=== PATIENT | male | born 1995 | race Caucasian/White ===

== ENCOUNTER 2019-09-07 16:40 | Inpatient (IN) | payer BC, SELFPAY ==
[2019-09-07 17:30] LABS: Arterial Blood Carboxyhemoglob 0.8 % (0-1.5); Blood O2 Saturation 90.4 % (92-98.5)
[2019-09-07 17:31] LABS: Absolute Lymphocytes (CBC) 1.5 K/uL (0.7-4.9); Basophils % 0.3 % (0-1.3); Hematocrit 50.3 % (39.6-49.0); Lymphocytes % 7.5 % (15.3-44.8); MPV 6.8 fL (7.6-11.3); RBC Red Blood Cell Count 5.76 M/uL (4.33-5.43)
[2019-09-07] MEDS ORDERED: NA CHLORIDE 0.9% 1,000 ML ONE ×2 (17:45→23:39)
[2019-09-07] MEDS ORDERED: ALBUTEROL 2.5 MG/3 ML NEB SOL ONE (17:45)
[2019-09-07] MEDS ORDERED: IPRATROPIUM BROM 0.5MG/2.5ML ONE (17:45)
[2019-09-07 17:54] LABS: Albumin 3.5 g/dL (3.4-5.0); Bilirubin Direct 0.2 mg/dL (0-0.2); Bilirubin Total 0.8 mg/dL (0.2-1.0); Potassium 3.9 mmol/L (3.5-5.1); Protein, Total 8.3 g/dL (6.4-8.2)
--- NOTE | 2019-09-07 17:57 | RAD REPORT ---
EXAM DESCRIPTION: RAD - Chest Pa And Lat (2 Views) - 09/07/2019 5:39 pm CLINICAL HISTORY: COUGH, hemoptysis, right-sided chest pain, history of recent pneumonia diagnosis a t outside facility COMPARISON: None. TECHNIQUE: PA and lateral views of the chest were obtained. FINDINGS: The lungs are slightly underinflated. Posterior left base interstitial and alveolar opacif ication is present consistent with a pneumonia diagnosis. Right-sided lung markings are not outside o f normal range for inspiratory effort. Heart size is normal and central vasculature is within normal limits. No pleural effusion or pneumot horax seen. No acute bony finding noted. No aortic abnormality. IMPRESSION: Left lung base pneumonia. No comparison available to assess progression or improvement. No pneumothorax or other acute chest finding.
--- NOTE | 2019-09-07 19:13 | RAD REPORT ---
EXAM DESCRIPTION: CT - Chest For Pe Angio - 09/07/2019 6:58 pm CLINICAL HISTORY: r/o PE, recent pneumonia diagnosis, right-sided chest pain, hemoptysis COMPARISON: Chest Pa And Lat (2 Views) dated 09/07/2019 TECHNIQUE: Dynamically enhanced 3 mm thick images of the chest were obtained during administration o f approximately 150mL Isovue 370 IV contrast. Coronal and oblique MIP reconstruction images were gene rated and reviewed. Exam utilizes a protocol to evaluate the pulmonary arterial tree. All CT scans are performed using dose optimization technique as appropriate and may include automated exposure control or mA/KV adjustment according to patient size. FINDINGS: Right lower lobe lobar and segmental branch pulmonary emboli identified. Peripheral airspa ce opacification is present downstream from the embolic event. This is probably pulmonary hemorrhage. No cavitation. Scattered right upper lobe pulmonary emboli are present with a few areas of parenchym al stranding. Airspace consolidation is present in the posterior gutter on the left. Pulmonary emboli are not confi rmed in this region. This is favored to be pneumonia rather than pulmonary hemorrhage or infarction. The aorta as imaged shows no acute or suspicious finding. No pericardial thickening or effusion. No pleural effusion or pleural thickening. No mediastinal or hilar suspicious masses. No chest wall masses or abnormal axillary lymphadenopathy. IMPRESSION: Multiple lobar and segmental branch pulmonary emboli noted in the right lower lobe. Rita pheral alveolar opacification is believed to be pulmonary hemorrhage. Airspace consolidation in the posterior left base. No pulmonary emboli confirmed. This is favored to be pneumonia or pulmonary hemorrhage or infarction. No other significant or suspicious findings.
--- NOTE | 2019-09-07 20:01 | EDPHYS ---
Physician Documentation [facility] Name: Sherif Stone Age: 24 yrs Sex: Male : 1995 Arrival Date: 09/07/2019 Time: 16:41 Bed 8 Private MD: ED Physician Josué Gomez HPI: 09/07 16:59 This 24 yrs old Male presents to ER via EMS with unknown complaint. pkl 16:59 The patient has shortness of breath at rest. Onset: The symptoms/episode began/occurred pkl 4 day(s) ago. Associated signs and symptoms: Pertinent positives: chest pain, productive cough, shortness of breath. Patient was admitted to [facility] for pneumonia 4 days ago. Was discharged 2 days ago and put on oral antibiotic. Now complained of right sided chest pain and coughing up blood. Passed out at home and brought in by ambulance. Historical: - Allergies: 16:46 No Known Allergies; rv - Home Meds: 16:46 None [Active]; rv - PMHx: 16:46 None; rv - PSHx: 16:46 None; rv - Immunization history:: Adult Immunizations up to date. - Social history:: Smoking status: Patient/guardian denies using tobacco. - Ebola Screening: : No symptoms or risks identified at this time. ROS: 16:59 Eyes: Negative for injury, pain, redness, and discharge, ENT: Negative for injury, pkl pain, and discharge, Neck: Negative for injury, pain, and swelling. 16:59 Cardiovascular: Positive for chest pain, of the right side chest. 16:59 Respiratory: Positive for cough, bloody sputum, shortness of breath, at rest. 16:59 Abdomen/GI: Negative for abdominal pain, nausea, vomiting, and diarrhea. 16:59 Back: Negative for acute changes. 16:59 : Negative for urinary symptoms. 16:59 MS/extremity: Negative for acute changes. 16:59 Skin: Negative for rash. 16:59 Neuro: Positive for near syncope. Exam: 16:59 Head/Face: Normocephalic, atraumatic. pkl 16:59 Head/face: Exam is negative for acute changes. 16:59 Eyes: Exam is negative for acute changes. 16:59 ENT: Exam is negative for acute changes. 16:59 Neck: Exam negative for nuchal rigidity. 16:59 Chest/axilla: Exam negative for acute changes. 16:59 Cardiovascular: Rate: tachycardic, actual rate is 110 bpm, Rhythm: regular. 16:59 Respiratory: mild respiratory distress is noted, Respirations: labored breathing, that is mild, Breath sounds: rales, that are moderate, are heard in the right lung. 16:59 Abdomen/GI: Bowel sounds: normal, Palpation: abdomen is soft and non-tender. 16:59 Back: Exam negative for acute changes. 16:59 : Exam negative for acute changes. 16:59 Musculoskeletal/extremity: Exam is negative for acute changes. 16:59 Skin: Exam negative for rash. 16:59 Neuro: Exam negative for acute changes, Mentation: is normal, Memory: is normal, Cranial nerves: grossly normal, Motor: is normal. Vital Signs: 16:44 BP 116 / 76; Pulse 110; Resp 21; Temp 97.8; Pulse Ox 88% on R/A; Weight 90.72 kg; rv Height 5 ft. 8 in. (172.72 cm); 18:03 BP 106 / 71; Pulse 104; Resp 21; Pulse Ox 96% on Nebulizer Mask; mg2 18:30 BP 115 / 65; Pulse 123; Resp 25; Temp 97.7; Pulse Ox 95% on 4 lpm NC; mg2 16:44 Body Mass Index 30.41 (90.72 kg, 172.72 cm) rv MDM: 16:42 Patient medically screened. pkl 19:38 Data reviewed: vital signs, nurses notes, lab test result(s), radiologic studies, CT pkl scan, plain films. 19:57 ED course: Talked to Dr. Pederson. Admit . pkl 09/07 16:57 Order name: CBC with Diff; Complete Time: 18:31 pkl 09/07 16:57 Order name: Chem 7; Complete Time: 18:31 pkl 09/07 16:57 Order name: LFT's; Complete Time: 18:31 pkl 09/07 16:57 Order name: Blood Culture Adult (2) pkl 09/07 16:57 Order name: ABG; Complete Time: 18:31 pkl 09/07 16:57 Order name: Lactate; Complete Time: 18:31 pkl 09/07 16:57 Order name: Procalcitonin; Complete Time: 18:31 pkl 09/07 16:58 Order name: Glucose, Ancillary Testing; Complete Time: 18:31 EDMS 09/07 16:58 Order name: D-Dimer; Complete Time: 18:31 pkl 09/07 21:48 Order name: Protime (+INR) EDMS 09/07 21:48 Order name: PTT, Activated Partial Thromb EDMS 09/07 21:52 Order name: Urine Drug Screen EDMS 09/07 23:39 Order name: Creatine Phosphokinase EDMS 09/07 23:39 Order name: CKMB Creatine Kinase MB EDMS 09/07 16:57 Order name: XRAY Chest Pa And Lat (2 Views); Complete Time: 18:31 pkl 09/07 17:54 Order name: EKG; Complete Time: 17:54 em1 09/07 18:30 Order name: CT Chest For PE Angio; Complete Time: 19:20 ss 09/07 23:39 Order name: Troponin I EDMS 09/08 05:49 Order name: CBC with Automated Diff EDMS 09/08 07:07 Order name: Comprehensive Metabolic Panel EDMS 09/08 07:07 Order name: T4 Free EDMS 09/08 07:07 Order name: Magnesium EDMS 09/08 07:07 Order name: Thyroid Stimulating Hormone EDMS Administered Medications: 18:00 Drug: Albuterol - atroVENT (3:1) (2.5 mg - 0.5 mg) 3 ml Route: Nebulizer; mg2 22:55 Follow up: Response: No adverse reaction mg2 18:00 Drug: NS 0.9% 500 ml Route: IV; Rate: bolus; Site: right antecubital; mg2 22:54 Follow up: Response: No adverse reaction; IV Status: Completed infusion; IV Intake: mg2 500ml 18:30 Drug: NS 0.9% 1000 ml Route: IV; Rate: 125 ml/hr; Site: right antecubital; mg2 22:54 Follow up: decreased to 100 ml/hr mg2 23:36 Follow up: IV Status: Infusion continued upon admission rv Point of Care Testing: Blood Glucose: 16:48 Blood Glucose: 115 mg/dL; mg2 Ranges: Critical Glucose Levels:Adult <50 mg/dl or >400 mg/dl <40 mg/dl or >180 mg/dl Disposition: 09/07/19 19:59 Hospitalization ordered by Heath Pederson for Inpatient Admission. Preliminary diagnosis is Pulmonary emboli right lung. Pneumonia left lung. - Bed requested for Telemetry/MedSurg (Inpatient). - Status is Inpatient Admission. bp - Condition is Stable. - Problem is new. - Symptoms are unchanged. UTI on Admission? No Signatures: Dispatcher [employer] EDMS Josué Gomez MD [facility] Kip, Kimani em1 Emy Jackson, RN RN Vinay Benjamin, BIANCA RN Arturo, Alfonso, RN RN [facility] Rohit Agee, RN RN rv Corrections: (The following items were deleted from the chart) 17:56 17:54 EKG - Nurse/Tech ordered. em1 em1 20:28 19:59 Hospitalization Ordered by Heath Pederson DO for Inpatient Admission. Preliminary cg diagnosis is Pulmonary emboli right lung. Pneumonia left lung. Bed requested for Intensive Care Unit. Status is Inpatient Admission. Condition is Stable. Problem is new. Symptoms are unchanged. UTI on Admission? No. pkl 09/08 09:23 12 20:28 09/07/2019 19:59 Hospitalization Ordered by Heath Pederson DO for Inpatient ms Admission. Preliminary diagnosis is Pulmonary emboli right lung. Pneumonia left lung. Bed requested for [facility] ER HOLD. Status is Inpatient Admission. Condition is Stable. Problem is new. Symptoms are unchanged. UTI on Admission? No. cg 09/08 09:48 09:23 09/07/2019 19:59 Hospitalization Ordered by Heath Pederson DO for Inpatient bp Admission. Preliminary diagnosis is Pulmonary emboli right lung. Pneumonia left lung. Bed requested for Telemetry/MedSurg (Inpatient). Status is Inpatient Admission. Condition is Stable. Problem is new. Symptoms are unchanged. UTI on Admission? No. ms
--- NOTE | 2019-09-07 20:01 | ER ---
Nurse's Notes [facility] Name: Sherif Stone Age: 24 yrs Sex: Male : 1995 Arrival Date: 09/07/2019 Time: 16:41 Bed 8 Private MD: Diagnosis: Pulmonary emboli right lung. Pneumonia left lung Presentation: 09/07 16:42 Presenting complaint: EMS states: patient was recently admitted for Pneumonia and was rv discharged last Tuesday. taking oral antibiotics which the patient cannot recall the name. He also pass out at home but did not hit the head. complaining of right side pain. coughing out blood clots multiple times today. Transition of care: patient was not received from another setting of care. Onset of symptoms was September 07, 2019 at 16:00. Risk Assessment: Do you want to hurt yourself or someone else? Patient reports no desire to harm self or others. Care prior to arrival: None. 16:42 Method Of Arrival: EMS: [facility] rv 16:42 Acuity: ANNAMARIA 3 rv 18:03 Initial Sepsis Screen: Does the patient meet any 2 criteria? RR > 20 per min. HR > 90 mg2 bpm. Does the patient have a suspected source of infection? Yes: Productive cough/pneumonia If YES to both, name of provider notified: Josué Gomez MD Historical: - Allergies: 16:46 No Known Allergies; rv - Home Meds: 16:46 None [Active]; rv - PMHx: 16:46 None; rv - PSHx: 16:46 None; rv - Immunization history:: Adult Immunizations up to date. - Social history:: Smoking status: Patient/guardian denies using tobacco. - Ebola Screening: : No symptoms or risks identified at this time. Screenin:47 Abuse screen: Denies threats or abuse. Denies injuries from another. Nutritional rv screening: No deficits noted. Tuberculosis screening: No symptoms or risk factors identified. Fall Risk None identified. Assessment: 16:46 General: Appears in no apparent distress. comfortable, Behavior is calm, cooperative. rv Pain: Complains of pain in right side. Neuro: Level of Consciousness is awake, alert, obeys commands, Oriented to person, place, time, situation. Cardiovascular: Patient's skin is warm and dry. Respiratory: Airway is patent. GI: No signs and/or symptoms were reported involving the gastrointestinal system. : No signs and/or symptoms were reported regarding the genitourinary system. EENT: No signs and/or symptoms were reported regarding the EENT system. Derm: Skin is intact. Musculoskeletal: No signs and/or symptoms reported regarding the musculoskeletal system. 17:36 Reassessment: Dr. Gomez notified of critical value DDIMER. ss 18:04 Respiratory: Reports pain with respiration. mg2 21:52 Reassessment: documentation moved to [facility] patient is ICU hold. mg2 Vital Signs: 16:44 BP 116 / 76; Pulse 110; Resp 21; Temp 97.8; Pulse Ox 88% on R/A; Weight 90.72 kg; rv Height 5 ft. 8 in. (172.72 cm); 18:03 BP 106 / 71; Pulse 104; Resp 21; Pulse Ox 96% on Nebulizer Mask; mg2 18:30 BP 115 / 65; Pulse 123; Resp 25; Temp 97.7; Pulse Ox 95% on 4 lpm NC; mg2 16:44 Body Mass Index 30.41 (90.72 kg, 172.72 cm) rv ED Course: 16:41 Patient arrived in ED. rv 16:41 Josué Gomez MD is Attending Physician. pkl 16:44 Triage completed. rv 16:47 Arm band placed on right wrist. rv 16:48 Alfonso Morris, BIANCA is Primary Nurse. mg2 16:48 Patient has correct armband on for positive identification. Bed in low position. Call rv light in reach. Side rails up X 1. Pulse ox on. NIBP on. 17:20 Inserted saline lock: 18 gauge in right antecubital area, using aseptic technique. mg2 Blood collected. 17:40 XRAY Chest Pa And Lat (2 Views) In Process Unspecified. EDMS 18:01 No provider procedures requiring assistance completed. mg2 18:02 Inserted saline lock: 22 gauge in left forearm, using aseptic technique. mg2 18:59 CT Chest For PE Angio In Process Unspecified. EDMS 19:58 Heath Pederson DO is Hospitalizing Provider. pkl 23:36 Patient admitted, IV remains in place. rv Administered Medications: 18:00 Drug: Albuterol - atroVENT (3:1) (2.5 mg - 0.5 mg) 3 ml Route: Nebulizer; mg2 22:55 Follow up: Response: No adverse reaction mg2 18:00 Drug: NS 0.9% 500 ml Route: IV; Rate: bolus; Site: right antecubital; mg2 22:54 Follow up: Response: No adverse reaction; IV Status: Completed infusion; IV Intake: mg2 500ml 18:30 Drug: NS 0.9% 1000 ml Route: IV; Rate: 125 ml/hr; Site: right antecubital; mg2 22:54 Follow up: decreased to 100 ml/hr mg2 23:36 Follow up: IV Status: Infusion continued upon admission rv Point of Care Testing: Blood Glucose: 16:48 Blood Glucose: 115 mg/dL; mg2 Ranges: Intake: 22:54 IV: 500ml; Total: 500ml. mg2 Outcome: 19:59 Decision to Hospitalize by Provider. pkl 23:35 Admitted to ER Hold. Please see Qiniu for further documentation. rv 23:35 Condition: stable 23:35 Instructed on the need for admit. 09/08 09:48 Patient left the ED. bp Signatures: Dispatcher [employer] EDMO Josué Gomez MD MD pkl Mildred Siu RN RN ss Vinay Benjamin RN RN bp Alfonso Morris, BIANCA RN mg2 Rohit Agee, BIANCA RN rv Corrections: (The following items were deleted from the chart) 09/07 18:02 18:02 Inserted saline lock: 22 gauge in left mg2 mg2 18:32 18:30 BP 115 / 65; Pulse 123bpm; Resp 25bpm; Pulse Ox 91% 3 lpm Nasal Cannula; Temp mg2 97.7F; mg2 22:56 18:01 Inserted saline lock: 18 gauge in right antecubital area, using aseptic mg2 technique. Blood collected. mg2
[2019-09-07] MEDS: ENOXAPARIN 100 MG/ML SYR SQ SCH ×2 (20:19→21:00)
--- NOTE | 2019-09-07 20:26 | P.HP ---
Certification for Inpatient Patient admitted to: Inpatient With expected LOS: >2 Midnights Patient will require the following post-hospital care: None Practitioner: I am a practitioner with admitting privileges, knowledge of patient current condition, hospital course, and medical plan of care. Services: Services provided to patient in accordance with Admission requirements found in Title 42 Section 412.3 of the Code of Federal Regulations Patient History Date of Service: 09/07/19 Primary Care Provider: Dr. Whitaker([place]) Reason for admission: Shortness of breath, syncope History of Present Illness: 24-year-old male presented to the emergency room with shortness of breath and syncope. Patient recently moved from [place] in June. Over the past 2 weeks he has been having upper respiratory infection symptoms including cough, congestion. He was not improving. He went to [facility] ER for further evaluation. He was diagnosed with bilateral pneumonia at that time. Patient was admitted this past Tuesday and eventually discharge on Tuesday. He was sent home with Levaquin. Today the patient had more shortness of breath. He also reported some hemoptysis. Patient also had a syncopal episode. He did not hit his head as a anna of his helped him to the ground. EMS was called. The patient was found to have room-air saturations of 88%. Patient was sent to the ER for further evaluation. In the ER patient was stabilize. Patient given IV fluids. White count was 19.3 , hemoglobin 17. Platelet count of 331. Sodium 137, potassium 3.9, BUN of 21, creatinine 1.3 with a GFR 67. Glucose 114. Lactic acid and pro calcitonin within normal range. X-ray shows left base pneumonia. D-dimer was elevated. A CT scan for PE was obtained. Multiple lobar and segmental branch pulmonary emboli noted in the right lower lobe. Peripheral alveolar opacification is believed to be pulmonary hemorrhage. Air space consolidation in the posterior left base noted. No pulmonary emboli confirmed. Patient was admitted for further evaluation and treatment. When I saw the patient in the ER, patient appeared improved. Patient did not appear in any respiratory distress. Patient on nasal cannula. Patient had slight tachycardia. Blood pressure stable. Patient reported that he had been taking his antibiotic. Patient also reports history of family members having protein-C deficiency. Patient has not had any prior blood clot in the past. Home medications list reviewed: Yes - Past Medical/Surgical History Diabetic: No Past Medical History: Patient denies medical history Past Surgical History: Patient denies surgical history Psychosocial/ Personal History: Patient is . He has 1 child. He works at a local [employer]. - Family History Mother -: Other (see notes) (Protein-C deficiency) Sister -: Other (see notes) (Protein C deficiency) - Social History Smoking Status: Never smoker Alcohol use: Yes CD- Drugs: No Caffeine use: Yes Place of Residence: Home Review of Systems General: As per HPI Eyes: Unremarkable ENT: Unremarkable Respiratory: Shortness of Breath, Hemoptysis, As per HPI Cardiovascular: Light Headedness, As per HPI Gastrointestinal: Unremarkable Genitourinary: Unremarkable Musculoskeletal: Unremarkable Integumentary: Unremarkable Neurological: As per HPI Lymphatics: Unremarkable Physical Examination - Physical Exam General: Alert, In no apparent distress, Oriented x3, Cooperative HEENT: Atraumatic, Normocephalic, Mucous membr. moist/pink Neck: Supple Respiratory: Crackles/rales (Bilateral), Expiratory wheezes (Bilateral) Cardiovascular: Irregular heart rate/rhythm (Sinus tachycardia) Gastrointestinal: Normal bowel sounds, Soft and benign, Non-distended, No tenderness, No masses, No rebound, No guarding Musculoskeletal: No erythema, No tenderness, No warmth Integumentary: No tenderness/swelling, No erythema, No warmth, No cyanosis Neurological: Normal speech, Normal strength at 5/5 x4 extr, Normal tone, Normal affect Lymphatics: No axilla or inguinal lymphadenopathy - Studies Laboratory Data (last 24 hrs) 09/07/19 17:15: Sodium 137, Potassium 3.9, BUN 21 H, Creatinine 1.30, Glucose 114 H, Total Bilirubin 0.8, AST 38 H, ALT 160 H, Alkaline Phosphatase 105 09/07/19 17:15: WBC 19.3 H, Hgb 17.3, Hct 50.3 H, Plt Count 331 Assessment and Plan - Plan Impression: Shortness of breath, syncope, and hemoptysis secondary to multiple lobe/ segmental branch pulmonary emboli to the right lower lobe complicated with left lung base pneumonia with recent bilateral pneumonia Elevated liver function likely related to above Mild dehydration Family history of protein C deficiency Plan: Shortness of breath, syncope, and hemoptysis secondary to multiple lobe/ segmental branch pulmonary emboli to the right lower lobe complicated with left lung base pneumonia with recent bilateral pneumonia: Patient will be admitted to ICU for close monitoring. Case discussed with pulmonology. Will obtain lab for protein C, protein S, factor 5 Leiden, ALEJANDRO, HIV, urine drug screen and hepatitis. Will also start Lovenox at 1 milligram/kilograms subcu twice daily. Will obtain echocardiogram to further evaluate. Will continue to monitor cardiac enzymes, telemetry and lab. Respiratory consulted to maintain sats above 93%. Will provide medication for cough, congestion and shortness of breath. Will wean off oxygen. Will continue with IV fluids. Blood, sputum cultures obtained. Will start IV Rocephin for pneumonia. Await further recommendations from pulmonology. Pulmonology will cover for hospitalist seen over the next 2 days. If patient stable within the next 12 hr will transfer patient to the floor. Elevated liver function likely related to above: Will obtain lab-HIV and hepatitis panel. Mild dehydration: Continue IV fluids. Family history of protein C deficiency: Continue with above recommendations. Will evaluate for protein C deficiency Discharge Plan: Home Plan to discharge in: Greater than 2 days - Advance Directives Does patient have a Living Will: No Does patient have a Durable POA for Healthcare: No - Code Status/Comfort Care Code Status Assessed: Yes (Patient is full code) Time Spent Managing Pts Care (In Minutes): 60
[2019-09-07] MEDS ORDERED: ACETAMINOPHEN 500 MG TAB PO PRN (20:55)
[2019-09-07] MEDS ORDERED: ONDANSETRON 4 MG/2 ML VIAL IV PRN (20:55)
[2019-09-07] MEDS: GUAIFENESIN 600 MG SA TAB PO SCH (21:00)
[2019-09-07] MEDS ORDERED: CEFTRIAXONE 1 GM/NS 50 ML 1 GM/50 ML BAG IV SCH (21:00)
[2019-09-07] MEDS: NA CHLORIDE 0.9% 1,000 ML IV SCH (21:00)
[2019-09-07] MEDS ORDERED: CEFTRIAXONE/SWI 1gm 1 GM/10 ML SYR ONE (21:28)
[2019-09-07 21:43] LABS: Protime INR 1.48
[2019-09-07 21:51] LABS: Barbiturates NEGATIVE (NEGATIVE); Benzodiazepines NEGATIVE (NEGATIVE); Cocaine NEGATIVE (NEGATIVE); METHAMPHETAM NEGATIVE (NEGATIVE); Methadone NEGATIVE (NEGATIVE); Opiates NEGATIVE (NEGATIVE); Phencyclidine NEGATIVE (NEGATIVE); THC Cannibis NEGATIVE (NEGATIVE)
[2019-09-07] MEDS ORDERED: GUAIFENESIN 600 MG SA TAB PO ONE (21:53)
[2019-09-07 22:17] VITALS: BMI 30.4
[2019-09-07 23:39] LABS: CKMB Creatine Kinase MB < 1.0 ng/mL (0.3-3.6); Creatine Phosphokinase 65 U/L (39-308); Troponin I < 0.02 ng/mL (0.0-0.045)
[2019-09-08] MEDS ORDERED: ACETAMINOPHEN 500 MG TAB ONE (01:49)
[2019-09-08] MEDS ORDERED: HYDROCODONE/APAP 7.5/325 MG TAB ONE (01:56)
[2019-09-08] MEDS ORDERED: TRAMADOL HCL 50 MG TAB PO PRN (02:06)
[2019-09-08] MEDS: HYDROCODONE/APAP 7.5/325 MG TAB PO PRN ×3 (02:09→20:37)
[2019-09-08] MEDS ORDERED: MORPHINE 2 MG/ML SYR ONE ×2 (02:29→09:45)
[2019-09-08] MEDS: MORPHINE 2 MG/ML SYR IV PRN ×2 (02:30→09:47)
[2019-09-08 05:43] LABS: Absolute Lymphocytes (CBC) 1.3 K/uL (0.7-4.9); Basophils % 0.2 % (0-1.3); Hematocrit 40.9 % (39.6-49.0); Lymphocytes % 7.4 % (15.3-44.8); MPV 6.9 fL (7.6-11.3); RBC Red Blood Cell Count 4.77 M/uL (4.33-5.43)
[2019-09-08 06:59] LABS: Albumin 2.9 g/dL (3.4-5.0); Bilirubin Total 0.5 mg/dL (0.2-1.0); Magnesium 2.3 mg/dL (1.8-2.4); Potassium 4.1 mmol/L (3.5-5.1); Protein, Total 7.1 g/dL (6.4-8.2); Thyroid Stimulating Hormone 0.64 uIU/mL (0.360-3.740)
[2019-09-08] MEDS: NA CHLORIDE 0.9% 1,000 ML IV SCH ×2 (07:00→20:11)
[2019-09-08] MEDS: ENOXAPARIN 100 MG/ML SYR SQ SCH ×2 (09:00→20:39)
[2019-09-08] MEDS: CEFTRIAXONE/SWI 1gm 1 GM/10 ML SYR IVP SCH ×2 (09:00→20:40)
[2019-09-08] MEDS ORDERED: NA CHLORIDE 0.9% 1,000 ML ONE (09:26)
[2019-09-08] MEDS ORDERED: CEFTRIAXONE/SWI 1gm 1 GM/10 ML SYR ONE (09:39)
[2019-09-08] MEDS ORDERED: ENOXAPARIN 100 MG/ML SYR SQ ONE (09:39)
--- NOTE | 2019-09-08 10:18 | P.PN ---
Subjective Date of Service: 09/08/19 Primary Care Provider: Dr. Whitakre([place]) Chief Complaint: Bilateral pulmonary emboli Subjective: Improving (Patient is improving admitted with pulmonary emboli right -sided pleuritic chest pain history of protein C deficiency in the family still having some chest pain) Review of Systems General: Weakness Respiratory: Shortness of Breath, Hemoptysis Cardiovascular: Chest Pain Physical Examination - Vital Signs Temperature: 99.3 F Blood Pressure: 115/66 Pulse: 104 Respirations: 18 Pulse Ox (%): 90 - Physical Exam General: Alert, Oriented x3, Moderate distress Respiratory: Clear to auscultation bilaterally, Diminished Cardiovascular: No edema, Normal S1 S2 - Studies Laboratory Data (last 24 hrs) 09/07/19 17:15: Sodium 137, Potassium 3.9, BUN 21 H, Creatinine 1.30, Glucose 114 H, Total Bilirubin 0.8, AST 38 H, ALT 160 H, Alkaline Phosphatase 105 09/07/19 17:15: WBC 19.3 H, Hgb 17.3, Hct 50.3 H, Plt Count 331 Assessment & Plan - Problems (Diagnosis) (1) Pulmonary emboli Current Visit: Yes Status: Acute Plan: Patient is 24 years of age has been sick for the past 2 weeks and was evaluated at the [facility] complaining of shortness of breath this treated for pneumonia as at steroids bronchodilators no relief became worse and appeared in the hospital diagnosed with pulmonary emboli family history of protein C deficiency I suspect he has bilateral pulmonary emboli confirmed by CT scan continue with Lovenox monitor oxygenation pain control will need lifelong anticoagulation white count is mildly elevated patient is on Rocephin oxygenation blood pressure satisfactory possible discharge tomorrow on Xarelto Qualifiers: Chronicity: acute Acute cor pulmonale presence: unspecified
[2019-09-08] MEDS: IPRATROPIUM BROM 0.5MG/2.5ML NEB PRN ×2 (10:35→18:40)
[2019-09-08] MEDS: ALBUTEROL 2.5 MG/3 ML NEB SOL NEB PRN ×2 (10:35→18:40)
[2019-09-08 10:59] LABS: CKMB Creatine Kinase MB < 1.0 ng/mL (0.3-3.6); Creatine Phosphokinase 41 U/L (39-308); Troponin I < 0.02 ng/mL (0.0-0.045)
[2019-09-08] MEDS: GUAIFENESIN 600 MG SA TAB PO SCH ×2 (12:31→20:40)
[2019-09-08] MEDS: HYDROMORPHONE HCL 2 MG/ML inj IV PRN ×3 (14:31→22:02)
[2019-09-08] MEDS ORDERED: INFLUENZA VACCINE (for 3y+) 0.5 ML DOSE IMVAC ONE (16:00)
[2019-09-09] MEDS: BENZONATATE 100 MG CAP PO PRN ×2 (01:49→18:12)
[2019-09-09] MEDS: HYDROMORPHONE HCL 2 MG/ML inj IV PRN ×2 (01:51→06:28)
[2019-09-09] MEDS: HYDROCODONE/APAP 7.5/325 MG TAB PO PRN (04:10)
[2019-09-09] MEDS: NA CHLORIDE 0.9% 1,000 ML IV SCH (04:11)
[2019-09-09 06:50] LABS: Hematocrit 37.1 % (39.6-49.0); RBC Red Blood Cell Count 4.23 M/uL (4.33-5.43)
[2019-09-09 06:51] LABS: BUN Blood Urea Nitrogen 12 mg/dL (7-18); Bicarbonate 26 mmol/L (21-32); Glucose Level 114 mg/dL (74-106); Potassium 3.9 mmol/L (3.5-5.1); Sodium Level 134 mmol/L (136-145)
[2019-09-09] MEDS: CEFTRIAXONE/SWI 1gm 1 GM/10 ML SYR IVP SCH (08:02)
[2019-09-09] MEDS: ENOXAPARIN 100 MG/ML SYR SQ SCH ×2 (08:03→21:03)
[2019-09-09] MEDS: GUAIFENESIN 600 MG SA TAB PO SCH (08:03)
--- NOTE | 2019-09-09 10:34 | P.PN ---
Subjective Date of Service: 09/09/19 Primary Care Provider: Dr. Whitaker([place]) Chief Complaint: Bilateral pulmonary emboli Subjective: Improving (Patient is doing well still complaining of right-sided chest pain still little short of breath ambulating) Review of Systems Unremarkable Physical Examination - Vital Signs Temperature: 97.9 F Blood Pressure: 131/66 Pulse: 102 Respirations: 20 Pulse Ox (%): 92 - Physical Exam General: Alert, Oriented x3, Mild distress Respiratory: Clear to auscultation bilaterally, Diminished Cardiovascular: No edema, Normal pulses Assessment & Plan - Problems (Diagnosis) (1) Pulmonary emboli Current Visit: Yes Status: Acute Plan: Patient admitted with bilateral pulmonary emboli presume secondary to protein C deficiency strong family history is oxygen saturation satisfactory plan to ambulate waiting chest x-ray possible discharge today on an Xarelto pack and ultra set in addition to incentive spirometry lifelong anticoagulation cultures negative Dc antibiotics Qualifiers: Chronicity: acute Acute cor pulmonale presence: unspecified Discharge Plan: Home
--- NOTE | 2019-09-09 11:47 | RAD REPORT ---
EXAM DESCRIPTION: RAD - Chest Pa And Lat (2 Views) - 09/09/2019 11:27 am CLINICAL HISTORY: Multiple pulmonary emboli, shortness of breath COMPARISON: CT PE study September 07, two view chest examination September 07 TECHNIQUE: PA and lateral views of the chest were obtained. FINDINGS: The lungs are underinflated. Worsening left base opacification is present. In a patient wi th pulmonary embolic disease this could be pulmonary hemorrhage/ pulmonary infarction change. Concurr ent pneumonia is certainly possible. Left base opacification is not substantially different. No failure or volume overload suspected. Heart size is normal and central vasculature is within nor mal limits. No pleural effusion or pneumothorax seen. No acute bony finding noted. No aortic abnor mality. IMPRESSION: Worsening left base opacification. On CT imaging this left base opacification appeared t o be more consistent with pneumonia. PE related infarction/pulmonary hemorrhage possible as well. Less prominent right base opacification not clearly different.
[2019-09-09] MEDS ORDERED: TRAMADOL 37.5mg/APAP 325mg PER TAB PO SCH (12:00)
[2019-09-09 12:10] LABS: Arterial Blood Carboxyhemoglob 1.4 % (0-1.5); Blood Gas Oxyhemoglobin 85.5 % (94-97); Blood O2 Saturation 87.2 % (92-98.5)
[2019-09-09] MEDS: levoFLOXacin 500 MG TAB PO SCH (13:04)
[2019-09-09] MEDS: TRAMADOL 37.5mg/APAP 325mg PER TAB PO SCH ×3 (13:04→23:37)
[2019-09-09] MEDS ORDERED: RIVAROXABAN 15 MG TABLET PO SCH (21:00)
[2019-09-10] MEDS: TRAMADOL 37.5mg/APAP 325mg PER TAB PO SCH ×3 (05:40→17:24)
[2019-09-10 07:16] LABS: Hematocrit 38.4 % (39.6-49.0); MPV 7.1 fL (7.6-11.3); RBC Red Blood Cell Count 4.43 M/uL (4.33-5.43)
[2019-09-10 07:22] LABS: BUN Blood Urea Nitrogen 9 mg/dL (7-18); Bicarbonate 28 mmol/L (21-32); Glucose Level 102 mg/dL (74-106); Potassium 3.7 mmol/L (3.5-5.1); Sodium Level 137 mmol/L (136-145)
[2019-09-10] MEDS: ENOXAPARIN 100 MG/ML SYR SQ SCH (08:10)
[2019-09-10] MEDS: BENZONATATE 100 MG CAP PO PRN (08:10)
[2019-09-10] MEDS: levoFLOXacin 500 MG TAB PO SCH (08:10)
--- NOTE | 2019-09-10 08:34 | RAD REPORT ---
EXAM DESCRIPTION: RAD - Chest Single View - 09/10/2019 7:16 am CLINICAL HISTORY: F/u pneumonia /PE Chest pain. COMPARISON: Chest Pa And Lat (2 Views) dated 09/09/2019; Chest Pa And Lat (2 Views) dated 09/07/2019 FINDINGS: Portable technique limits examination quality. Bibasilar lung opacities are noted, fractionally progressive since comparative study. Small bilateral pleural effusions noted. The heart is normal in size. No displaced fractures. IMPRESSION: Fractional worsening of bibasilar lung opacities since prior study.
--- NOTE | 2019-09-10 08:55 | RAD REPORT ---
EXAM DESCRIPTION: RAD - Chest Single View - 09/10/2019 8:44 am CLINICAL HISTORY: Follow up pneumonia Chest pain. COMPARISON: Chest Pa And Lat (2 Views) dated 09/07/2019; Chest For Pe Angio dated 09/07/2019 FINDINGS: Portable technique limits examination quality. Mild opacity is present in the left lung base, appearing unchanged since comparative study. The heart is upper limit normal in size. No displaced fractures.
--- NOTE | 2019-09-10 12:08 | P.PN ---
Subjective Date of Service: 09/10/19 Primary Care Provider: Dr. Whiatker([place]) Chief Complaint: Bilateral pulmonary emboli Subjective: Improving (Patient is improving today he is doing much better pain has improved Ultram has helped think room-air sats 91% still low) Review of Systems General: Weakness Respiratory: Shortness of Breath Cardiovascular: Chest Pain Physical Examination - Vital Signs Temperature: 97.1 F Blood Pressure: 118/58 Pulse: 78 Respirations: 18 Pulse Ox (%): 98 - Physical Exam General: Alert, In no apparent distress, Oriented x3 Respiratory: Diminished Cardiovascular: No edema, Regular rate/rhythm, Normal S1 S2 Assessment & Plan - Problems (Diagnosis) (1) Pulmonary emboli Current Visit: Yes Status: Acute Plan: Patient has clinically improved chest pain has improved chest x-ray shows diminished lung volumes white count is now normal labs unremarkable hemoglobin is stable awaiting 2D echo possible discharge today on the ultraset, levofloxacin Xarelto pack Qualifiers: Chronicity: acute Acute cor pulmonale presence: unspecified Discharge Plan: Home Plan to discharge in: 24 Hours
[2019-09-10] MEDS: ALBUTEROL 2.5 MG/3 ML NEB SOL NEB PRN (13:35)
--- NOTE | 2019-09-10 16:01 | ECHO ---
HEIGHT: 5 ft 8 in WEIGHT: 200 lb 0 oz DATE OF STUDY: 09/10/[address]: Heath Pederson DO 2-DIMENSIONAL: YES M.MODE: YES DOPPLER: YES COLOR FLOW: YES TDS: NO PORTABLE: NO DEFINITY: NO BUBBLE STUDY: NO DIAGNOSIS: PULMONARY EMBOLISM CARDIAC HISTORY: CATHERIZATION: NO SURGERY: NO PROSTHETIC VALVE: NO PACEMAKER: NO MEASUREMENTS (cm) DIASTOLIC (NORMALS) SYSTOLIC (NORMALS) IVSd 0.9 (0.6-1.2) LA Diam 2.7 (1.9-4.0) LVEF 83% LVIDd 3.5 (3.5-5.7) LVIDs 1.7 (2.0-3.5) %FS 51% LVPWd 0.9 (0.6-1.2) Ao Diam 2.9 (2.0-3.7) 2 DIMENSIONAL ASSESSMENT: RIGHT ATRIUM: NORMAL LEFT ATRIUM: NORMAL RIGHT VENTRICLE: NORMAL LEFT VENTRICLE: NORMAL TRICUSPID VALVE: NORMAL MITRAL VALVE: NORMAL PULMONIC VALVE: NORMAL AORTIC VALVE: NORMAL PERICARDIAL EFFUSION: NONE AORTIC ROOT: NORMAL LEFT VENTRICULAR WALL MOTION: NORMAL DOPPLER/COLOR FLOW: PHYSIOLOGIC TRICUSPID REGURGITATION. NORMAL RIGHT VENTRICULAR SYSTOLIC PRESSURE. COMMENTS: NORMAL 2D ECHOCARDIOGRAM WITH DOPPLER. TECHNOLOGIST: Charanjit BARBER
[2019-09-10] MEDS: ARFORMOTEROL TARTRATE 15 MCG/2 ML VIAL.NEB NEB SCH ×2 (16:38→19:50)
--- NOTE | 2019-09-10 16:40 | P.PN ---
Subjective Date of Service: 09/10/19 Primary Care Provider: Dr. Whitaker([place]) Chief Complaint: Bilateral pulmonary emboli Patient reports persistent cough, sometimes productive of blood-stained sputum. He also reports right-sided pleuritic chest pain. His oxygen saturation dropped to 89% on room air during ambulation. Physical Examination - Vital Signs Temperature: 97.4 F Blood Pressure: 112/60 Pulse: 88 Respirations: 18 Pulse Ox (%): 93 - Physical Exam General: Alert, In no apparent distress, Oriented x3 HEENT: Mucous membr. moist/pink Neck: Supple Respiratory: Clear to auscultation bilaterally, Normal air movement Cardiovascular: Regular rate/rhythm, Normal S1 S2 Gastrointestinal: Normal bowel sounds, Soft and benign, No tenderness Musculoskeletal: No swelling Integumentary: No rashes Neurological: Normal speech, Normal strength at 5/5 x4 extr Assessment And Plan - Current Problems (Diagnosis) (1) Pulmonary emboli Current Visit: Yes Status: Acute Qualifiers: Chronicity: acute Acute cor pulmonale presence: unspecified (2) Acute respiratory failure with hypoxemia Current Visit: Yes Status: Acute - Plan Change the Lovenox to Xarelto Wean off oxygen as tolerated. Pain management with Tramadol. Increase activity as tolerated Cough suppressant. Reassess oxygen requirement in the a.m.
[2019-09-10] MEDS ORDERED: GUAIFENESIN/CODEINE 5ML UCUP PO PRN (16:41)
[2019-09-10] MEDS: predniSONE 20 MG TAB PO SCH ×2 (17:24→20:17)
[2019-09-10] MEDS: RIVAROXABAN 15 MG TABLET PO SCH (20:17)
[2019-09-11] MEDS: TRAMADOL 37.5mg/APAP 325mg PER TAB PO SCH ×2 (00:06→05:20)
[2019-09-11 03:54] LABS: HBsAG Nonreactive (Nonreactive)
[2019-09-11 05:57] LABS: BUN Blood Urea Nitrogen 10 mg/dL (7-18); Bicarbonate 27 mmol/L (21-32); Glucose Level 132 mg/dL (74-106); Potassium 4.2 mmol/L (3.5-5.1); Sodium Level 137 mmol/L (136-145)
[2019-09-11] MEDS: ALBUTEROL 2.5 MG/3 ML NEB SOL NEB PRN (07:55)
[2019-09-11] MEDS: ARFORMOTEROL TARTRATE 15 MCG/2 ML VIAL.NEB NEB SCH (08:00)
[2019-09-11 08:10] VITALS: BP 110/61; TEMP 97.1
[2019-09-11] MEDS: RIVAROXABAN 15 MG TABLET PO SCH (08:13)
[2019-09-11] MEDS: levoFLOXacin 500 MG TAB PO SCH (08:13)
[2019-09-11] MEDS: predniSONE 20 MG TAB PO SCH (08:13)
[2019-09-11 08:20] VITALS: O2SAT 94
--- NOTE | 2019-09-11 09:13 | RAD REPORT ---
EXAM DESCRIPTION: Jovan Pa And Lat (2 Views)09/11/2019 8:29 am CLINICAL HISTORY: Cough COMPARISON: September 10, 2019 FINDINGS: No significant change in the bibasilar opacities Upper lobes clear. Heart is normal size
--- NOTE | 2019-09-11 11:07 | P.DS ---
Admission Date: 09/07/19 Discharge Date: 09/11/19 Primary Care Provider: Dr. Whitaker([place]) Disposition: ROUTINE DISCHARGE Discharge Condition: GOOD Reason for Admission: Bilateral pulmonary emboli Consultations: Pulmonary-Dr. Mora - Problems (1) Pulmonary emboli Status: Acute Qualifiers: Chronicity: acute Acute cor pulmonale presence: unspecified (2) Acute respiratory failure with hypoxemia Status: Resolved Brief History of Present Illness: 24-year-old gentleman presented to the ED with a complaint of 2 week history of upper respiratory symptoms, got hospitalized for 2 days at [facility] and discharged with oral Levaquin. Her symptoms of cough and shortness of breath did not improve but progressed and later developed hemoptysis. He also developed a syncopal episode. In the ED, CTA thorax demonstrated multilobular pulmonary embolism and alveolar opacities suggestive of pulmonary infarction or hemorrhage. He was also hypoxic. Patient was admitted for further management of acute pulmonary embolism. Hospital Course: He was treated with full-dose Lovenox, placed on oxygen therapy and treated supportively with IV pain medications and cough suppressants. Patient reports family history of protein C deficiency and factor 5 laden. Hypercoagulable workup was done and the results are still pending. The patient was seen and evaluated by Pulmonary. He was also treated with antibiotics for any underlying pneumonia. His clinical condition improved with treatment. The patient was weaned off oxygen. His oxygen saturation was borderline with ambulation. He had severe leukocytosis which resolved during the course of the hospital stay. He has been transitioned from full-dose Lovenox to Xarelto. The patient has significantly improved clinically. He is discharged to continue oral Xarelto at home. He will follow with Dr. Mora within 2 weeks. He will need the script for Xarelto 20 mg daily once he completes the 15 mg twice a day dosing for the next 3 weeks. Vital Signs/Physical Exam: Temp Pulse Resp BP Pulse Ox 97.1 F 92 H 17 110/61 94 09/11/19 08:00 09/11/19 08:00 09/11/19 08:00 09/11/19 08:00 09/11/19 08:00 General: Alert, In no apparent distress, Oriented x3 HEENT: Mucous membr. moist/pink Neck: Supple, JVD not distended Respiratory: Clear to auscultation bilaterally, Normal air movement Cardiovascular: No edema, Regular rate/rhythm, Normal S1 S2 Gastrointestinal: Soft and benign, No tenderness Musculoskeletal: No swelling Integumentary: No rashes Neurological: Normal speech, Normal strength at 5/5 x4 extr Laboratory Data at Discharge: WBC 7.6 K/uL (4.3-10.9) D 09/10/19 06:57 Hgb 13.4 g/dL (13.6-17.9) L 09/10/19 06:57 Hct 38.4 % (39.6-49.0) L 09/10/19 06:57 Plt Count 240 K/uL (152-406) 09/10/19 06:57 PT 17.2 SECONDS (9.5-12.5) H 09/07/19 21:14 INR 1.48 09/07/19 21:14 APTT 34.5 SECONDS (24.3-36.9) 09/07/19 21:14 Sodium 137 mmol/L (136-145) 09/11/19 05:23 Potassium 4.2 mmol/L (3.5-5.1) 09/11/19 05:23 BUN 10 mg/dL (7-18) 09/11/19 05:23 Creatinine 0.83 mg/dL (0.55-1.3) 09/11/19 05:23 Glucose 132 mg/dL (74-106) H 09/11/19 05:23 Magnesium 2.3 mg/dL (1.8-2.4) 09/08/19 05:06 Total Bilirubin 0.5 mg/dL (0.2-1.0) 09/08/19 05:06 AST 52 U/L (15-37) H 09/08/19 05:06 ALT 147 U/L (12-78) H 09/08/19 05:06 Alkaline Phosphatase 89 U/L (45-117) 09/08/19 05:06 Troponin I < 0.02 ng/mL (0.0-0.045) 09/08/19 10:18 Home Medications: Tramadol HCl/Acetaminophen [Ultracet Tablet] 1 each PO Q8H PRN #20 tablet Levofloxacin [Levaquin] 500 mg PO DAILY #7 tablet 09/10/19 Benzonatate [Tessalon Perle*] 200 mg PO TID PRN #30 cap 09/11/19 Guaifen W/Codeine Syrup [ROBITUSSIN A-C Syrup*] 10 ml PO QID PRN #1 bottle 09/11 Rivaroxaban [Xarelto*] 15 mg PO BID #41 tablet 09/11/19 New Medications: Benzonatate [Tessalon Perle*] 200 mg PO TID PRN #30 cap PRN Reason: Cough Guaifen W/Codeine Syrup [ROBITUSSIN A-C Syrup*] 10 ml PO QID PRN #1 bottle PRN Reason: Cough Levofloxacin [Levaquin] 500 mg PO DAILY #7 tablet Rivaroxaban [Xarelto*] 15 mg PO BID #41 tablet Tramadol HCl/Acetaminophen [Ultracet Tablet] 1 each PO Q8H PRN #20 tablet PRN Reason: Pain Scale 5-7 (Moderate) Patient Discharge Instructions: Please make sure that the Xarelto pack is covered in the need lifelong anticoagulation to follow with me in 2 weeks Diet: Regular Activity: Ad chasity Followup: Hernandez Mora MD [ACTIVE - CAN ADMIT] - 1-2 Weeks Time spent managing pt's care (in minutes): 40
[2019-09-13 12:42] LABS: Protein C Antigen 53 % (70-140)
[2019-09-13 19:26] LABS: HIV AG/AB 4TH GEN Non-reactive (Non-reactive)
== END 2019-09-11 12:31 | disposition home or self-care (01) | DRG 175 ==
LOC: ER 16:40 → ERHOLD 20:07 → 2ND 09-08 09:34
PROVIDERS: ADMIT Internal Medicine Sleep Medicine; ATTEND Internal Medicine
DX: I26.99 Other pulmonary embolism without acute cor pulmonale (principal); J18.9 Pneumonia, unspecified organism; J96.01 Acute respiratory failure with hypoxia; D68.59 Other primary thrombophilia; R79.89 Other specified abnormal findings of blood chemistry; E86.0 Dehydration; Z84.89 Family history of other specified conditions
CPT/HCPCS: 36415; 71045; 71046; 71275; 80048; 80053; 80074; 80076; 80307; 81241; 82550; 82553; 82805; 82947; 83605; 83735; 84145; 84439; 84443; 84484; 85025; 85027; 85302; 85305; 85306; 85379; 85610; 85730; 86038; 87040; 87070; 87205; 87389; 93306; 94640; 96360; 96361; 99285; J0696; J1170; J1650; J2270; J7030; J7512; J7605; Q9967